=== PATIENT | male | born 1950 | race Caucasian/White ===

== ENCOUNTER 2017-03-16 16:26 | Emergency (ER) | payer OTHER, MEDICARE ==
[~2017-03-16] VITALS: Ht 177.8 cm; Wt 107.5 kg
[~2017-03-16 16:26] MED LIST: DEPAKOTE500 MG PO; FLONASE16 G1 BOTH NARES; GABAPENTIN PO; LO-DOSE ASPIRIN81 M1 PO; MAGOX 400400 MG PO; METFORMIN HCL500 M4 PO; MYRBETRIQ25 MG PO; PERCOCET 5/31 TABLET PO; PRILOSEC20 MG PO; RISPERDAL2 MG PO; SYNTHROID50 MCG PO; TENORMIN50 MG PO; TYLENOL EXTRA500 MG PO; ZESTRIL2.5 MG PO; ZETIA10 MG PO
[2017-03-16] MEDS ORDERED: FLEXERIL10 MG PO (20:16)
[2017-03-16 20:28] VITALS: BP 141/63
== END 2017-03-16 20:31 | disposition home or self-care (01) ==
LOC: EME 16:26
DX: S70.12XA Contusion of left thigh, initial encounter (principal); S80.02XA Contusion of left knee, initial encounter; R60.0 Localized edema; W17.2XXA Fall into hole, initial encounter; Z79.82 Long term (current) use of aspirin; E11.9 Type 2 diabetes mellitus without complications; Z79.84 Long term (current) use of oral hypoglycemic drugs; E78.5 Hyperlipidemia, unspecified; I10 Essential (primary) hypertension; Z86.73 Personal history of transient ischemic attack (TIA), and cerebral infarction without residual deficits; K21.9 Gastro-esophageal reflux disease without esophagitis; G89.29 Other chronic pain; Z88.1 Allergy status to other antibiotic agents; Z88.8 Allergy status to other drugs, medicaments and biological substances
CPT/HCPCS: 93971; 99281; 99284

== ENCOUNTER → 2017-05-08 | Outpatient (CLI) | payer MEDICARE ==
[~2017-05-08] MED LIST changes: +FLEXERIL10 MG PO
== END | disposition home or self-care (01) ==
LOC: CDC 08:30
DX: Z01.810 Encounter for preprocedural cardiovascular examination (principal); R00.1 Bradycardia, unspecified; I45.10 Unspecified right bundle-branch block; R94.31 Abnormal electrocardiogram [ECG] [EKG]
CPT/HCPCS: 93000

== ENCOUNTER 2017-07-12 23:08 | Emergency (ER) | payer OTHER, MEDICARE ==
[~2017-07-12] VITALS: Ht 177.8 cm; Wt 100.9 kg
[2017-07-12 23:39] LABS: HEMATOCRIT 40.5 % (38.0-50.0); HEMOGLOBIN 14.5 G/DL (12.5-16.6); MCH 32.2 PG (29.0-34.0); MCHC 35.8 G/DL (30.0-36.0); PLATELET COUNT 141 K/uL (156-360); RBC DIS.WIDTH-CV 12.6 % (11.8-14.6); RBC DIS.WIDTH-SD 40.9 % (39-53); WHITE BLOOD COUNT 3.3 K/uL (4.1-10.2)
[2017-07-12 23:49] LABS: APPEARANCE CLEAR ((CLEAR)); BILIRUBIN NEGATIVE; BLOOD SMALL; COLOR STRAW ((YELLOW)); GLUCOSE (STRIP) >=500; KETONES NEGATIVE; LEUKOCYTES NEGATIVE; NITRITE NEGATIVE; PROTEIN (STRIP) NEGATIVE; SPECIFIC GRAVITY 1.011 (1.000-1.030); UROBILINOGEN 0.2 MG/DL (0.2-1.0)
[2017-07-12 23:51] LABS: CHLORIDE 97 mEq/L (99-109); POTASSIUM 4.3 mEq/L (3.7-5.4); SODIUM 134 mEq/L (136-147)
[2017-07-12 23:53] LABS: BACTERIA NONE SEEN /HPF; EPITHELIAL CELLS NONE SEEN /HPF; MUCUS NONE SEEN /LPF; RED BLOOD CELLS 0-5 /HPF (0-5); UCUL ADDED? NO; WHITE BLOOD CELLS 0-5 /HPF (0-5)
[2017-07-12 23:54] LABS: TOTAL PROTEIN 6.1 g/dL (6.4-8.3)
[2017-07-12 23:56] LABS: TOTAL BILIRUBIN 0.4 mg/dL (0.0-1.0)
[2017-07-12 23:57] LABS: ALKALINE PHOSPHATASE 81 IU/L (3-129); CREATININE 0.9 mg/dL (0.6-1.3); GFR ESTIMATE (CALCULATED) > 59 mL/min/ (58.99-99999)
[2017-07-12 23:58] LABS: UREA NITROGEN (BUN) 9 mg/dL (9-23)
[2017-07-12 23:59] LABS: AST (GOT) 13 IU/L (2-34)
[2017-07-13] LABS: ALT (GPT) 21 IU/L (3-49)
[2017-07-13 00:06] LABS: GLUCOSE 500 mg/dL (70-99)
[2017-07-13 03:28] VITALS: BP 119/68
== END 2017-07-13 03:28 | disposition home or self-care (01) ==
LOC: EME 23:08
PROVIDERS: Emergency Medicine
DX: E11.65 Type 2 diabetes mellitus with hyperglycemia (principal); K21.9 Gastro-esophageal reflux disease without esophagitis; I10 Essential (primary) hypertension; E78.5 Hyperlipidemia, unspecified; G43.909 Migraine, unspecified, not intractable, without status migrainosus; Z86.73 Personal history of transient ischemic attack (TIA), and cerebral infarction without residual deficits; Z79.84 Long term (current) use of oral hypoglycemic drugs; Z79.82 Long term (current) use of aspirin; Z88.0 Allergy status to penicillin; Z88.1 Allergy status to other antibiotic agents; Z88.8 Allergy status to other drugs, medicaments and biological substances
CPT/HCPCS: 80053; 81003; 82948; 85027; 99281; 99285; J7030